=== PATIENT | female | born 2000 | race Caucasian/White ===

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

== ENCOUNTER 2022-11-27 15:42 | Emergency (ER) | payer SELFPAY ==
[~2022-11-27] VITALS: Ht 160 cm; Wt 90.7 kg
[2022-11-27 16:07] LABS: BILIRUBIN Negative (Negative); BLOOD 3+ (Negative); CLARITY Cloudy (Clear); COLOR Dark Yellow (Yellow); GLUCOSE Negative (Negative); KETONE Trace (Negative); LEUKO ESTERASE 2+ (Negative); NITRITE Negative (Negative); PH 5.5 (4.5-8.0); SPECIFIC GRAVITY 1.025 (1.001-1.030)
[2022-11-27 16:40] LABS: BACTERIA 2+; MUCOUS 1+
[2022-11-27] MEDS ORDERED: DIFLUCAN150 MG PO (16:52)
[2022-11-27] MEDS ORDERED: MACROBID100 M1 PO (16:52)
== END 2022-11-27 16:58 | disposition home or self-care (01) ==
LOC: ED 15:42
PROVIDERS: Emergency Medicine
DX: N39.0 Urinary tract infection, site not specified (principal)